=== PATIENT | male | born 1990 | race Caucasian/White ===

== ENCOUNTER 2020-01-25 07:30 | Emergency (ER) | payer SELFPAY ==
[~2020-01-25] VITALS: Ht 170.2 cm; Wt 70.3 kg
[2020-01-25 07:36] VITALS: BP 124/71
--- NOTE | 2020-01-25 07:45 | NUR ---
PT AMB TO BED 4.
--- NOTE | 2020-01-25 08:08 | NUR ---
Patient discharged with v/s stable. Written and verbal after care instructions given and explained regarding cellulitis Patient alert, oriented and verbalized understanding of instructions. Ambulatory with steady gait. All questions addressed prior to discharge. ID band removed. Patient advised to follow up with PMD. Rx of keflex and bactrim given. Patient educated on indication of medication including possible reaction and side effects. Opportunity to ask questions provided and answered.
[2020-01-25 08:18] VITALS: BP 124/71
== END 2020-01-25 08:08 | disposition home or self-care (01) ==
LOC: MED 07:30
DX: S70.261A Insect bite (nonvenomous), right hip, initial encounter (principal)
CPT/HCPCS: 99283